=== PATIENT | male | born 1980 | race American Indian/Alaskan Native ===

== ENCOUNTER 2018-03-04 08:47 | Emergency (ER) | payer SELFPAY ==
[2018-03-04 08:51] VITALS: BMI 22.5
[2018-03-04 09:08] VITALS: BP 138/87; PULSE 74; RESP 20; TEMP 97.8; O2SAT 97
--- NOTE | 2018-03-04 09:36 | C.PDOC ---
History Of Present Illness 37 years old male presents to ED for complaints of feeling tired and hallucinating from smoking K2 five days ago. Patient told nurses he is homeless. As per protocol, CP was sent to get a finger stick for blood glucose, but patient became belligerent, refused to answer questions, refused to cooperate, started taking pictures of myself and CP. Security was called and patient remained uncooperative and refused to remove clothing for physical examination. Patient was told that he will need psychiatric evaluation if he is halluc inating, but he refuses, states he wants to leave, then he walked out. Patient was speaking in full sentences with no slurring speech. Patient was in No Acute Distress. Patient appears to be malingering. Denies SI or HI. Time Seen by Provider: 03/04/18 08:54 Chief Complaint (Nursing): Medical Clearance History Per: Patient History/Exam Limitations: no limitations Onset/Duration Of Symptoms: Hrs Current Symptoms Are (Timing): Still Present Recent travel outside of the [place]: No Past Medical History Reviewed: Historical Data, Nursing Documentation, Vital Signs Vital Signs: Last Vital Signs Temp 97.8 F 03/04/18 08:57 Pulse 74 03/04/18 08:57 Resp 20 03/04/18 08:57 BP 138/87 03/04/18 08:57 Pulse Ox 97 03/04/18 08:57 - Medical History PMH: No Chronic Diseases Surgical History: No Surg Hx Family History: States: No Known Family Hx - Social History Hx Alcohol Use: Yes Hx Substance Use: Yes - Immunization History Hx Tetanus Toxoid Vaccination: No Hx Influenza Vaccination: No Hx Pneumococcal Vaccination: No Review Of Systems Neurological: Positive for: Other (Speaking in full sentences, no slurred speech ). Negative for: Change in Speech Psych: Positive for: Other (Hallucination ). Negative for: Suicidal ideation (Or HI) Physical Exam - Physical Exam Appears: Non-toxic, No Acute Distress, Other (Tall, thin male. Physical Examintion not Done due to patient refusing to cooperate. ) Neurological/Psych: Oriented x3, Normal Speech Gait: Steady ED Course And Treatment O2 Sat by Pulse Oximetry: 97 (RA) Pulse Ox Interpretation: Normal Medical Decision Making Medical Decision Makin37 y/o male stating he is tired; wants to rest. and then sts he has hallucinations, denies hi and si. . pt in no acute distress. does not appear to be danger to himself or others. pt refusing to cooperate with phsyciatric eval protocol and walked out of ed. Disposition - Disposition Disposition: ELOPEMENT - ER ONLY Disposition Time: 09:10 Condition: STABLE Forms: [facility] (Chinese) - Clinical Impression Clinical Impression: Medical assessment - PA / [employer] / Resident Statement MD/DO has reviewed & agrees with the documentation as recorded. - Scribe Statement The provider has reviewed the documentation as recorded by the Scribe Abraham Styles All medical record entries made by the Scribe were at my direction and personally dictated by me. I have reviewed the chart and agree that the record accurately reflects my personal performance of the history, physical exam, medical decision making, and the department course for this patient. I have also personally directed, reviewed, and agree with the discharge instructions and disposition.[email or web address]
== END 2018-03-04 09:15 | disposition left against medical advice (07) ==
LOC: C.ER 08:47
DX: Z04.89 Encounter for examination and observation for other specified reasons (principal); Z59.0 Homelessness